=== PATIENT | female | born 1950 | race Caucasian/White ===

== ENCOUNTER 2016-12-16 12:26 | Emergency (ER) | payer MEDICARE, BC ==
[2016-12-16 13:39] LABS: APPEARANCE HAZY (CLEAR); BILIRUBIN NEGATIVE (NEGATIVE); COLOR YELLOW (YELLOW); GLUCOSE NEGATIVE (NEGATIVE); KETONE NEGATIVE (NEGATIVE); LEUKOCYTE ESTERASE TRACE (NEGATIVE); NITRITE NEGATIVE (NEGATIVE); PH 6.5 (5.0-6.0); PROTEIN NEGATIVE (NEGATIVE); SPECIFIC GRAVITY 1.005 (1.005-1.020); UROBILINOGEN NORMAL (NORMAL)
[2016-12-16 13:48] LABS: BACTERIA FEW /hpf (NONE SEEN); EPITHELIAL CELLS 0-5 /hpf (0-5); RED CELLS - URINE 0-5 /hpf (0-5); YEAST >1+ /hpf (NONE SEEN)
== END 2016-12-16 15:03 | disposition home or self-care (01) ==
LOC: D.ER 12:26
PROVIDERS: Emergency Medicine
DX: R41.82 Altered mental status, unspecified (principal)

== ENCOUNTER 2016-12-29 00:54 | Emergency (ER) | payer MEDICARE, BC ==
[2016-12-29 01:49] LABS: APPEARANCE CLEAR (CLEAR); BASOPHILS 0.7 % (0-2); BILIRUBIN NEGATIVE (NEGATIVE); COLOR YELLOW (YELLOW); EOSINOPHILS 7.5 % (0-7); GLUCOSE NEGATIVE (NEGATIVE); HEMATOCRIT 33.7 % (36.0-48.0); HEMOGLOBIN 10.5 g/dL (12-16); IMMATURE GRANULOCYTES 0.2 % (0-5); KETONE NEGATIVE (NEGATIVE); LEUKOCYTE ESTERASE NEGATIVE (NEGATIVE); LYMPHOCYTES 40.4 % (15-50); MCH 27.5 pg (26.0-34.0); MCHC 31.2 g/dL (31.0-37.0); MCV 88.2 fL (80.0-100.0); MEAN PLATELET VOLUME 11.9 fL (7.4-10.4); MONOCYTES 8.8 % (2-11); NEUTROPHILS 42.4 % (40-80); NITRITE NEGATIVE (NEGATIVE); PLATELET COUNT 159 10x3/uL (130-400); PROTEIN NEGATIVE (NEGATIVE); RBC 3.82 10x6/uL (4.00-5.40); RDW 13.7 % (11.5-14.5); SPECIFIC GRAVITY 1.015 (1.005-1.020); UROBILINOGEN NORMAL (NORMAL); WBC 5.8 10x3/uL (4.8-10.8)
[2016-12-29 02:04] LABS: ALBUMIN 3.8 g/dL (3.4-5.0); ALKALINE PHOSPHATASE 68 U/L (46-116); ALT (SGPT) 15 U/L (10-68); CALC OSMOLALITY 280 mosm/kg (275-300); CARBON DIOXIDE 29.7 mmol/L (21.0-32.0); CHLORIDE - SERUM 103 mmol/L (98-107); CREATININE - SERUM 0.8 mg/dL (0.6-1.3); GLUCOSE 99 mg/dL (74-106); POTASSIUM - SERUM 4.1 mmol/L (3.5-5.1); PROTEIN - SERUM 6.9 g/dL (6.4-8.2); SODIUM 140 mmol/L (136-145); UREA NITROGEN 17 mg/dL (7-18); eGFR NON AFRICAN AMERICAN 75 mL/min (90-120)
== END 2016-12-29 02:20 | disposition home or self-care (01) ==
LOC: D.ER 00:54
PROVIDERS: Emergency Medicine
DX: R30.0 Dysuria (principal); R10.9 Unspecified abdominal pain; D64.9 Anemia, unspecified; Z85.51 Personal history of malignant neoplasm of bladder

== ENCOUNTER → 2018-07-02 09:04 | Outpatient (CLI) | payer MEDICARE, BC ==
[2018-07-02 10:00] LABS: BASOPHILS 0.8 % (0-2); EOSINOPHILS 2.8 % (0-7); HEMATOCRIT 40.5 % (36.0-48.0); HEMOGLOBIN 13.1 g/dL (12-16); IMMATURE GRANULOCYTES 0.2 % (0-5); LYMPHOCYTES 32.5 % (15-50); MCH 28.9 pg (26.0-34.0); MCHC 32.3 g/dL (31.0-37.0); MCV 89.4 fL (80.0-100.0); MEAN PLATELET VOLUME 12.2 fL (7.4-10.4); MONOCYTES 6.8 % (2-11); NEUTROPHILS 56.9 % (40-80); PLATELET COUNT 173 10x3/uL (130-400); RBC 4.53 10x6/uL (4.00-5.40); RDW 13.7 % (11.5-14.5); WBC 5.3 10x3/uL (4.8-10.8)
[2018-07-02 10:13] LABS: ALBUMIN 4.1 g/dL (3.4-5.0); ANION GAP 13.6 mmol/L (8-16); BILIRUBIN - TOTAL 0.4 mg/dL (0.2-1.3); CALCIUM 9.3 mg/dL (8.5-10.1); CHOL - HDL RATIO 2.7 ratio (2.3-4.1); CREATININE - SERUM 0.9 mg/dL (0.6-1.3); LDL-HDL RATIO 1.6 ratio (1.5-3.5); POTASSIUM - SERUM 4.6 mmol/L (3.5-5.1); PROTEIN - SERUM 7.8 g/dL (6.4-8.2); T4 THYROXIN - FREE 0.91 ng/dL (0.76-1.46); THYROID STIMULATING HORMONE 2.11 uIU/mL (0.36-3.74)
== END | disposition home or self-care (01) ==
LOC: D.LAB 09:04
PROVIDERS: Family Medicine
DX: Z00.01 Encounter for general adult medical examination with abnormal findings (principal); I10 Essential (primary) hypertension; E04.2 Nontoxic multinodular goiter; Q27.30 Arteriovenous malformation, site unspecified; R53.83 Other fatigue

== ENCOUNTER → 2018-07-11 08:00 | Outpatient (CLI) | payer MEDICARE, BC | END | disposition home or self-care (01) | LOC: D.MAMMO 08:00 | DX: Z12.31 Encounter for screening mammogram for malignant neoplasm of breast (principal) ==

== ENCOUNTER 2020-10-28 17:53 | Emergency (ER) | payer MEDICARE, BC ==
[~2020-10-28] VITALS: Ht 162.6 cm; Wt 62.3 kg
[2020-10-28 18:14] VITALS: Ht 162.6 cm; Wt 62.3 kg
[2020-10-28 18:49] LABS: BASOPHILS 0.9 % (0-2); EOSINOPHILS 1.1 % (0-7); HEMATOCRIT 40.3 % (36.0-48.0); HEMOGLOBIN 13.4 g/dL (12-16); LYMPHOCYTES 24.3 % (15-50); MCH 28.7 pg (26.0-34.0); MCHC 33.2 g/dL (31.0-37.0); MCV 86.5 fL (80.0-100.0); MONOCYTES 10.1 % (2-11); NEUTROPHILS 63.6 % (40-80); PLATELET COUNT 186 10x3/uL (130-400); RBC 4.66 10x6/uL (4.00-5.40); RDW 13.3 % (11.5-14.5); WBC 5.8 10x3/uL (4.8-10.8)
[2020-10-28 18:56] LABS: CALC OSMOLALITY 284 mosm/kg (275-300); CALCIUM 9.5 mg/dL (8.5-10.1); CARBON DIOXIDE 31.3 mmol/L (21.0-32.0); CHLORIDE - SERUM 105 mmol/L (98-107); GLUCOSE 117 mg/dL (74-106); POTASSIUM - SERUM 4.5 mmol/L (3.5-5.1); SODIUM 141 mmol/L (136-145); UREA NITROGEN 21 mg/dL (7-18); eGFR NON AFRICAN AMERICAN 58 mL/min (90-120)
[2020-10-28 19:00] LABS: APTT 33.3 SECONDS (22.8-39.4)
[2020-10-28 19:10] LABS: INR 1.14 (0.85-1.17); PROTIME 13.5 SECONDS (11.6-15.0)
[2020-10-28 19:14] LABS: ALBUMIN 4.2 g/dL (3.4-5.0); ALKALINE PHOSPHATASE 88 U/L (30-120); ALT (SGPT) 28 U/L (10-68); BILIRUBIN - TOTAL 0.26 mg/dL (0.2-1.3); CKMB 2.5 U/L (0.0-3.6); CREATINE KINASE 199 UL (21-215); MAGNESIUM - SERUM 2.4 mg/dL (1.8-2.4); PROTEIN - SERUM 7.8 g/dL (6.4-8.2); THYROID STIMULATING HORMONE 1.07 uIU/mL (0.36-3.74)
[2020-10-28 19:15] LABS: TROPONIN-I 0.017 ng/mL (0.000-0.060)
[2020-10-28 19:46] LABS: UDS - AMPHET NEGATIVE QUAL (NEGATIVE); UDS - BARB NEGATIVE QUAL (NEGATIVE); UDS - BENZO POSITIVE QUAL (NEGATIVE); UDS - COCAINE NEGATIVE QUAL (NEGATIVE); UDS - OPIATE NEGATIVE QUAL (NEGATIVE); UDS - PCP NEGATIVE QUAL (NEGATIVE); UDS - THC NEGATIVE QUAL (NEGATIVE)
[2020-10-28 19:49] LABS: BILIRUBIN NEGATIVE (NEGATIVE); KETONE NEGATIVE (NEGATIVE); NITRITE NEGATIVE (NEGATIVE); UROBILINOGEN NORMAL mg/dL (< 2)
[2020-10-28 20:28] VITALS: BP 164/78
== END 2020-10-28 20:28 | disposition home or self-care (01) ==
LOC: D.ER 17:53
PROVIDERS: Emergency Medicine
DX: F03.91 Unspecified dementia, unspecified severity, with behavioral disturbance (principal)

== ENCOUNTER 2020-12-11 17:57 | Emergency (ER) | payer MEDICARE, BC ==
[~2020-12-11] VITALS: Ht 162.6 cm; Wt 59.1 kg
[2020-12-11 18:01] VITALS: Ht 162.6 cm; Wt 59.1 kg
[2020-12-11] MEDS ORDERED: LIPITOR20 MG PO (18:06)
[2020-12-11 18:36] LABS: BACTERIA FEW HPF (<MOD); BILIRUBIN NEGATIVE (NEGATIVE); KETONE NEGATIVE mg/dL (< 1+); NITRITE NEGATIVE (NEGATIVE); PH 6.5 (5.0-8.0); SQUAMOUS EPITHELIAL 1 HPF (0-4); UROBILINOGEN NORMAL mg/dL (< 2); WHITE CELLS - URINE 180 HPF (0-4)
[2020-12-11] MEDS ORDERED: MACROBID100 MG PO (18:58)
[2020-12-11] MEDS ORDERED: CEPHALEXIN500 M1 PO (18:58)
[2020-12-11 19:58] VITALS: BP 164/84
== END 2020-12-11 19:40 | disposition home or self-care (01) ==
LOC: D.ER 17:57
PROVIDERS: Family Medicine
DX: N39.0 Urinary tract infection, site not specified (principal); F03.90 Unspecified dementia, unspecified severity, without behavioral disturbance, psychotic disturbance, mood disturbance, and anxiety